=== PATIENT | male | born 1995 | race Caucasian/White ===

== ENCOUNTER 2023-05-08 17:40 | Emergency (ER) | payer OTHER, BC ==
[2023-05-08] MEDS ORDERED: Lidocaine 1% 30 ML SDV INJECT ONE (19:20)
[2023-05-08] MEDS ORDERED: fentaNYL 100 MCG/2 ML SDV IVPUSH ONE (19:25)
== END 2023-05-08 19:56 | disposition home or self-care (01) ==
LOC: DL.ED 17:40
DX: S43.005A Unspecified dislocation of left shoulder joint, initial encounter (principal); E66.9 Obesity, unspecified; V94.31XA Injury to rider of (inflatable) recreational watercraft being pulled behind other watercraft, initial encounter
CPT/HCPCS: 23650; 73030; 99283; J3010; 23655